=== PATIENT | male | born 1990 | race Caucasian/White ===

== ENCOUNTER 2019-01-02 18:48 | Emergency (ER) | payer OTHER, SELFPAY ==
[2019-01-02 18:50] VITALS: BP 146/71; PULSE 93; RESP 16; TEMP 36.9; O2SAT 99
--- NOTE | 2019-01-02 19:10 | ED.GENADUL_ITS ---
Discharge Plan Disposition Patient Disposition: HOME Condition: Good Discharge Details Chief Complaint: GenMedical Clinical Impression: Colitis, Hepatic cyst Primary Care Provider: None,None ED Provider: Justus Morin Home Meds and New Rx's Prescriptions: New ciprofloxacin HCl [Cipro] 500 mg tablet 500 mg PO BID Qty: 20 RF: 0 metronidazole [Flagyl] 500 mg tablet 500 mg PO TID 10 Days Qty: 30 RF: 0 No Action No Known Home Meds RF: 0 Discharge Instructions Instructions: Colitis (ED) Additional Instructions: Please take the antibiotics as directed. Do not take any alcohol with the Flagyl as this can cause a severe reaction. Please take 1000 mg of Tylenol every 6 hours and 800 mg of ibuprofen every 6 hours as needed for pain. If you notice any worsening of your symptoms, or any new symptoms such as vomiting, diarrhea, fever, chills, shortness of breath, chest pain, numbness, weakness, or fainting , please return immediately to the emergency department for reevaluation. Please follow up with your primary care provider as soon as possible for reassessment and reevaluation. As always, it was a pleasure participating in your medical care today. Please follow-up with your family doctor for reassessment of the hepatic cyst. Medical Decision Making This is a pleasant 28-year-old male who presents today for evaluation of abdominal pain for the last 2 days, it occurred while he was jumping while rollerskating. He denies any vomiting or diarrhea, he denies red flags of fever chills hematochezia melena or acholic stool. Exam demonstrates no testicular pain, pain appears to be localized to the left lower abdomen. We will get a CT scan to rule out acute diverticulitis versus abscess. We will get a UA to rule out UTI, we will rehydrate, and treat the patient's pain. Differential is high as for diverticulitis versus so has muscle sprain. 8:[address] scan results are positive for evidence of colitis, no evidence of abscess, obstruction or other mass. There are 2 small subcentimeter hypodensities noted in the liver, most likely hepatic cyst. No other significant abnormalities. Patient's white count is normal, the remainder of his labs are benign. Patient states that he will stop drinking alcohol for the medications. He will be given his first dose of Cipro here, and a prescription for Cipro and Flagyl for home use. We discussed red flags which to return the patient understands. Will also set up PCP for outpatient follow-up for the patient. I have extensively reviewed the treatment plan and discharge instructions with the patient. I have addressed all patient concerns at this time. The patient was made aware of what symptoms to monitor for that would warrant a return to the emergency department. Discussed the plan with the patient, they demonstrate verbal understanding and agreement with our assessment and plan at this time. COMPARISON: No relevant prior studies available. FINDINGS: Heart: Heart size normal. ABDOMEN: Liver: 7 mm hypodense irregular lesion in the anterior liver on series 4 image 15. 5 mm low-density lesion in the posterior liver dome on series 4 image 12. These does not meet criteria for further assessment. Gallbladder and bile ducts: Normal. No calcified stones. No ductal dilation. Pancreas: Normal. No inflammatory changes or ductal dilation. Spleen: Normal. No splenomegaly. Adrenals: Normal. No adrenal mass. Kidneys and ureters: Normal. No hydronephrosis or hydroureter. No urinary tract stones are identified. Stomach and bowel: The visualized distal esophagus and stomach are normal. The small bowel is normal with no evidence of obstruction. The colon is largely contracted, however it appears slightly thickwalled with some minimal adjacent stranding, suspicious for colitis. No evidence of bowel obstruction, perforation, or abscess. Appendix: Normal. No evidence of appendicitis. PELVIS: Bladder: Unremarkable as visualized. Reproductive: Unremarkable as visualized. ABDOMEN and PELVIS: Intraperitoneal space: No free fluid or air. Bones/joints: No acute osseous abnormalities. Soft tissues: Unremarkable. Vasculature: Normal. No abdominal aortic aneurysm. Lymph nodes: No adenopathy. Other findings: Visualized lug bases are clear. IMPRESSION: 1. Mild diffuse colonic wall thickening with faint adjacent stranding, consistent with colitis. No evidence of bowel obstruction, perforation, or abscess. 2. There are 2 small subcentimeter hypodensities in the liver which are statistically most likely small hepatic cysts. These do not reach criteria for further assessment. Dictated and Authenticated by: Charles Boyd MD. Ordering:JONE Jerome MD HPI General Date/Time Provider Initiated Documentation: 01/02/19 18:51 . HPI Narrative: This is a 28-year-old male with no significant past medical history except for history of a left-sided hernia repair when he was a child, he presents today for evaluation of left lower quadrant pain for the last 2 days. The patient states that he was rollerblading when he tried to jump, as he was pushing off he noticed significant pain in his left lower quadrant. This is continued since then. Pain is made worse with movement and palpation. Improved by nothing. He denies any testicular pain, dysuria, vomiting or diarrhea. He denies any hematochezia melena or acholic stool. He denies any fever, chills, chest pain shortness of breath numbness or tingling. He has no other complaints at this time. He denies any other modifying factors. Patient does drink regularly, last drink was at 4 PM. He denies any IV or illicit drug use. Related Data Home Medications Medication Instructions Recorded Confirmed Unknown [No Known Home Meds] 09/13/16 01/02/19 ciprofloxacin HCl [Cipro] 500 mg PO BID #20 tab 01/02/19 metronidazole [Flagyl] 500 mg PO TID 10 Days #30 tab 01/02/19 Previous Rx's Medication Instructions Recorded ciprofloxacin HCl [Cipro] 500 mg PO BID #20 tab 01/02/19 metronidazole [Flagyl] 500 mg PO TID 10 Days #30 tab 01/02/19 Allergies Allergy/AdvReac Type Severity Reaction Status Date / Time amoxicillin AdvReac Intermediate Skin Rash Unverified 10/31/16 23:43 General Stated Complaint: GenMedical YAN: 4 Review of Systems Review of Systems All systems reviewed & are unremarkable except as noted in HPI and below PFSH Surgical History Status post repair of hydrocele (Acute) History of hernia repair (Chronic) Social History Smoking/Tobacco Use Status: Current every day Tobacco Type: e-cigarettes Alcohol Intake: current Alcohol Intake frequency: 0-2 drinks per day Alcohol type: beer Substance use type: marijuana Do you feel safe at home: Yes Do you feel safe in your relationship?: Yes Exam Narrative Exam Narrative: 1.Const: Well-nourished, Well-developed, appearing stated age 2.Eyes: PERRL, no conjunctival injection, and symmetrical lids. 3.ENT: Atraumatic external nose and ears. Moist MM. Neck: Symmetric, trachea midline, No thyromegaly. 4.CVS: +S1/S2, No murmurs or gallops. Peripheral pulses 2+ and equal in all extremities. Brisk capillary refill in all extremities. 5.RESP: Unlabored respiratory effort. Clear to auscultation bilaterally. No wheezes rales or rhonchi 6.GI: Soft, Nondistended, No hepatosplenomegaly. No guarding or rebound. Notable reproducible left lower quadrant pain on exam. No pain at McBurney's point, negative Buchanan sign. Left-sided obturator and psoas sign is present. No testicular tenderness, normal male genitalia, normal cremasteric reflex bilaterally. 7.MSK: Normocephalic/Atraumatic, Extremities w/o deformity or ttp No cyanosis or clubbing, Normal movement of all extremities 8.Skin: Warm, Dry. No rashes or lesions. 9.Neuro: regulatory affairs coordinator II-XII grossly intact. Sensation grossly intact, no focal neurolo gic deficits. 10.Psych: (AAO) x3. Appropriate mood and affect Course Vital Signs Temperature 36.9 C 01/02/19 18:50 Pulse 93 H 01/02/19 18:50 Respiratory Rate 16 01/02/19 18:50 Blood Pressure 146/71 H 01/02/19 18:50 Pulse Oximetry 99 01/02/19 18:50 Temperature 36.9 C 01/02/19 18:50 Temperature Source Temporal Artery Scan 01/02/19 18:50 Pulse 93 H 01/02/19 18:50 Respiratory Rate 16 01/02/19 18:50 Respiratory Effort 01/02/19 18:50 Blood Pressure 146/71 H 01/02/19 18:50 Pulse Oximetry 99 01/02/19 18:50 Oxygen Delivery Method Room Air 01/02/19 18:50 Oxygen Flow Rate 0 01/02/19 18:50
[2019-01-02] MEDS: Acetaminophen 500 MG TAB 1000 MG PO (19:17)
[2019-01-02] MEDS: Normal Saline 1,000 ML 1000 ML IV (19:19)
[2019-01-02] MEDS: Omnipaque 350 MG/ML 100 ML BTL IJ (19:31)
[2019-01-02 19:39] LABS: ALT 25 U/L (12-78); AST 20 U/L (15-37); Albumin 4.6 g/dL (3.4-5.0); Alkaline Phosphatase 55 U/L (46-116); Anion Gap 8.4 mmol/L (3-11); BUN 11 mg/dL (7-18); Bilirubin, Total 0.3 mg/dL (0.2-1.0); CO2 28.6 mmol/L (21.0-32.0); CREATININE 1.11 mg/dL (0.70-1.30); Chloride 102 mmol/L (98-107); Glucose 80 mg/dL (70-100); Lipase 92 U/L (73-393); Potassium 3.7 mmol/L (3.5-5.1); Sodium 139 mmol/L (136-145)
--- NOTE | 2019-01-02 19:40 | DI.CT_ITS ---
SYMPTOM/DIAGNOSIS: LLQ PAIN ABDOMEN AND PELVIC CT: CT scan of the abdomen and pelvis was performed following the uneventful administration of intravenous contrast material. The visualized lung bases are clear. The liver is normal in size. There are several tiny hypodense lesions within the liver. They are too small for further characterization but likely reflect small cysts. There is a 1.7 by 1 cm. hypodense lesion in the subcapsular region at the posterior lateral aspect of the right lobe of the liver. The gallbladder is negative. There is no biliary ductal dilatation. The pancreas, spleen, adrenal glands, kidneys, ureters and bladder are unremarkable as are the reproductive organs. The abdominal aorta is of normal caliber. No significant abdominal or pelvic adenopathy, ascites or pneumoperitoneum is seen. The colon is largely collapsed limiting evaluation with bowel wall thickening. No significant pericolonic inflammatory change is seen. No findings to suggest acute appendicitis are present. The bones are intact. IMPRESSION: 1. No definite evidence of an acute abdomen. 2. Non distended colon making evaluation of bowel wall thickening limited. If there is concern for bowel inflammatory process, a follow up examination with oral contrast may be obtained. 3. 1.7 cm. hypodense lesion in the posterior subcapsular region of the right lobe of the liver. The finding is nonspecific. This may represent a benign lesion such as a hemangioma. Abdominal ultrasound may be considered for further evaluation on a non emergent basis.
[2019-01-02 19:51] LABS: Bilirubin Negative (Negative); Blood Negative (Negative); Clarity Clear; Glucose Negative (Negative); Ketones Negative (Negative); Leukocyte Esterase Negative (Negative); Nitrite Negative (Negative); Urobilinogen 0.2 EU/dL (Up TO 0.2)
[2019-01-02] MEDS: Ketorolac 30 MG/ML VIAL IVP (19:58)
--- NOTE | 2019-01-02 20:03 | DI.VRAD_ITS ---
EXAM: CT Abdomen and Pelvis With Contrast EXAM DATE/TIME: 01/02/2019 7:05 PM CLINICAL HISTORY: 28 years old, male; Abdominal pain; Localized; Left lower quadrant (llq); Prior surgery; Surgery date: 6+ months; Surgery type: Hydrocele, hernia repair TECHNIQUE: Imaging protocol: Axial computed tomography images of the abdomen and pelvis with intravenous contrast. Coronal and sagittal reformatted images were created and reviewed. Radiation optimization: All CT scans at this facility use at least one of these dose optimization techniques: automated exposure control; mA and/or kV adjustment per patient size (includes targeted exams where dose is matched to clinical indication); or iterative reconstruction. Contrast material: [id number]; Contrast volume: 94 ml; Contrast route: IV; COMPARISON: No relevant prior studies available. FINDINGS: Heart: Heart size normal. ABDOMEN: Liver: 7 mm hypodense irregular lesion in the anterior liver on series 4 image 15. 5 mm low-density lesion in the posterior liver dome on series 4 image 12. These does not meet criteria for further assessment. Gallbladder and bile ducts: Normal. No calcified stones. No ductal dilation. Pancreas: Normal. No inflammatory changes or ductal dilation. Spleen: Normal. No splenomegaly. Adrenals: Normal. No adrenal mass. Kidneys and ureters: Normal. No hydronephrosis or hydroureter. No urinary tract stones are identified. Stomach and bowel: The visualized distal esophagus and stomach are normal. The small bowel is normal with no evidence of obstruction. The colon is largely contracted, however it appears slightly thickwalled with some minimal adjacent stranding, suspicious for colitis. No evidence of bowel obstruction, perforation, or abscess. Appendix: Normal. No evidence of appendicitis. PELVIS: Bladder: Unremarkable as visualized. Reproductive: Unremarkable as visualized. ABDOMEN and PELVIS: Intraperitoneal space: No free fluid or air. Bones/joints: No acute osseous abnormalities. Soft tissues: Unremarkable. Vasculature: Normal. No abdominal aortic aneurysm. Lymph nodes: No adenopathy. Other findings: Visualized lug bases are clear. IMPRESSION: 1. Mild diffuse colonic wall thickening with faint adjacent stranding, consistent with colitis. No evidence of bowel obstruction, perforation, or abscess. 2. There are 2 small subcentimeter hypodensities in the liver which are statistically most likely small hepatic cysts. These do not reach criteria for further assessment. Dictated and Authenticated by: Charles Boyd MD. Ordering:JONE Jerome MD
[2019-01-02 20:16] LABS: Abs Immature Grans 0.01 k/cumm (0.0-0.09); Absolute Basophil Count 0.02 k/cumm (0.0-0.2); Absolute Eosinophil Count 0.09 k/cumm (0.0-0.7); Absolute Lymphocyte Count 1.44 k/cumm (1.2-3.4); Absolute Monocyte Count 0.35 k/cumm (0.11-0.7); Basophils % 0.4; Eosinophils % 1.6; HCT 44.3 % (40.0-50.0); Immature Grans % 0.2; Lymphocytes % 25.2; Mean Corp. HGB Concentration 33.9 g/dL (32.0-36.0); Mean Corpuscular Hemoglobin 29.4 pg (27.0-33.0); Mean Corpuscular Volume 86.7 fL (80-95); Mean Platelet Volume 10.6 fL (8.0-11.0); Monocytes % 6.1; Neutrophils % 66.5; Platelet Count 268 x1000/uL (130-400); RBC 5.11 m/cumm (4.50-6.00); RBC Distribution Width 12.1 % (11.8-14.1); White Blood Cell Count 5.71 k/cumm (4.4-10.8)
[2019-01-02] MEDS: Ciprofloxacin 500 MG TAB PO ×2 (20:26)
[2019-01-02 20:31] VITALS: BP 132/79; PULSE 87; RESP 18; TEMP 37.1; O2SAT 98
--- NOTE | 2019-01-03 08:56 | PDOC.ERCMPRO ---
Care Management Progress Note 01/03-Dr. Morin requested assistance with establishing a PCP. Adjfilemonu from [facility] working second hand. Referral faxed to [facility] this am.
--- NOTE | 2019-01-03 08:58 | CMPROGNOTE_ITS ---
Care Management Progress Note 01/03-Dr. Morin requested assistance with establishing a PCP. Adjfilemonu from [facility] color control operator. Referral faxed to [facility] this am.
== END 2019-01-02 20:30 | disposition home or self-care (01) ==
PROVIDERS: Emergency Provider Student in an Organized Health Care Education/Training Program; PCP Physician Assistant Medical
DX: K52.9 Noninfective gastroenteritis and colitis, unspecified (principal); K76.89 Other specified diseases of liver
CPT/HCPCS: 36415; 80053; 83690; 96361; 96374; 96375; 99285; 74177; 81003; 85025; 99284; J1885; J2270; J3490

== ENCOUNTER 2019-09-03 13:01 | Emergency (ER) | payer OTHER, SELFPAY ==
[2019-09-03] VITALS (31 sets, daily range): BP systolic 116–138; BP diastolic 61–76; PULSE 53–70; RESP 7–24; TEMP 36.8; O2SAT 81–100
--- NOTE | 2019-09-03 13:38 | DI.RAD_ITS ---
EXAM: XR CHEST 2V PA LATERAL INDICATION: chest pain, r/o acute disease. COMPARISON: LEFT RIBS TO INCLUDE CXR from 03/11/2012 TECHNIQUE: 2D digital imaging was performed. FINDINGS: Heart size is normal. The lungs are well inflated and clear. No infiltrate, effusion or pneumothor ax is seen. No rib or spine fractures identified. IMPRESSION: Negative chest x-ray.
--- NOTE | 2019-09-03 13:54 | ED.GENADUL_ITS ---
Discharge Plan Disposition Patient Disposition: HOME Condition: Improving Discharge Details Chief Complaint: Chest Pain Clinical Impression: Acute chest wall pain Primary Care Provider: Daniel Thomas ED Provider: Trisha Ramos Home Meds and New Rx's Prescriptions: No Action No Known Home Meds RF: 0 Discharge Instructions Instructions: Chest Wall Pain (ED) Additional Instructions: Alternate tylenol and motrin as needed and directed for pain. You can purchase [id number] lidocaine patches to take as directed for pain. Alternate ice and heat to the affected area several times daily for 20 minutes at a time. Follow-up with your primary care doctor in 1 week. Return to the emergency department with any worsening or new concerning symptoms. Discharge Data Discharge Date/Time-TO BE ENTERED AT DEPARTURE: 09/03/19 16:55 Discharge Physician: Trisha Ramos Medical Decision Making 29-year-old male with no significant past medical history who is a smoker and daily drinker presents for left sided chest pain since yesterday. Patient sent from urgent care for further evaluation of his chest pain as there was no injury. States he has 2 little children at home but denies any known injury. He states the pain is worse with movement of his arms, deep breath and palpation. EKG on arrival unremarkable. Patient has a localized area of significant tenderness palpation to his left anterior medial chest. There is no evidence of rash, trauma or infection. Lungs clear. Abdomen soft and nontender. Appears most likely consistent with chest wall strain, costochondritis or musculoskeletal chest pain. Denies tearing or ripping sensation and not consistent with dissection. History presentation not consistent with ACS or PE. PERC negative. Labs and imaging done and unremarkable. Troponin negative. D-dimer negative. Patient was given Lidoderm patch, and Toradol and had complete relief of pain and was requesting to go home. Patient was advised to alternate ice and heat, ibuprofen, Tylenol and to purchase [id number] lidocaine patches. Advised to follow up with the primary care doctor for re-evaluation. Usual and customary return precautions given prior to discharge. Medical Records Medical records reviewed: Yes I reviewed the patient's medical records. Imaging Data Radiologic Study: Radiologist's impression: XR Chest, 2 Views Exam date and time: 09/03/2019 1:40 PM Age: 29 years old Clinical indication: Cough TECHNIQUE: Imaging protocol: XR of the chest Views: 2 views. COMPARISON: No relevant prior studies available. FINDINGS: Lungs: Unremarkable. No consolidation. Pleural space: Unremarkable. No pleural effusion. No pneumothorax. Heart/Mediastinum: Unremarkable. No cardiomegaly. Bones/joints: Unremarkable. IMPRESSION: No acute findings. Lab Data Lab results reviewed: Yes I reviewed the patient's lab results. Labs: Laboratory Tests Range/Units 09/03/19 09/03/19 09/03/19 13:25 13:25 13:25 WBC (4.4-10.8) k/cumm 5.00 RBC (4.50-6.00) m/cumm 5.05 Hgb (13.5-17.5) g/dL 15.3 Hct (40.0-50.0) % 44.5 MCV (80-95) fL 88.1 MCH (27.0-33.0) pg 30.3 MCHC (32.0-36.0) g/dL 34.4 RDW (11.8-14.1) % 12.3 Plt Count (130-400) x1000/uL 257 MPV (8.0-11.0) fL 10.7 Immature Gran % % 0.4 Neutrophils % 55.0 Lymphocytes % 30.2 Monocytes % 8.2 Eosinophils % 5.6 Basophils % 0.6 Absolute Neutrophils (1.2-6.7) k/cumm 2.75 Absolute Lymphocytes (1.2-3.4) k/cumm 1.51 Absolute Monocytes (0.11-0.7) k/cumm 0.41 Absolute Eosinophils (0.0-0.7) k/cumm 0.28 Absolute Basophils (0.0-0.2) k/cumm 0.03 D-Dimer (<500) ng/mlFEU 240 Sodium (136-145) mmol/L 145 Potassium (3.5-5.1) mmol/L 3.7 Chloride (98-107) mmol/L 104 Carbon Dioxide (21.0-32.0) mmol/L 29.8 Anion Gap (3-11) mmol/L 11.2 H BUN (7-18) mg/dL 9 Creatinine (0.70-1.30) mg/dL 0.99 Estimated GFR/1.73 m2 (mL/min/1.73m2) >= 60.00 Glucose (74-106) mg/dL 88 Calcium (8.5-10.1) mg/dL 9.0 Magnesium (1.8-2.4) mg/dL 2.0 Total Bilirubin (0.2-1.0) mg/dL 0.2 AST (15-37) U/L 14 L ALT (16-63) U/L 22 Alkaline Phosphatase (46-116) U/L 55 Troponin I (<0.06) ng/Ml < 0.05 Total Protein (6.4-8.2) g/dL 7.5 Albumin (3.4-5.0) g/dL 4.3 ECG Data Attestation: I personally reviewed and interpreted this ECG (s) as follows: Interpretation: Rate of 60, sinus, no acute ST elevation or depression. DC 180. QTc 410. QRS 104. HPI General Date/Time Provider Initiated Documentation: 09/03/19 13:05 . History of Present Illness 29 year old M presents to the emergency department with the chief complaint of Left-sided chest pain, Patient started experiencing this day(s) (2) and it has been intermittent. No relieving factors improve symptom(s), Movement worsens symptoms and Other factors that worsen symptoms (Palpation, deep breath) . Patient notes denies cough, diaphoresis, fever/chills, headaches, loss of appetite, malaise, nausea/vomiting, rash, shortness of br eath, syncope and weakness. Patient did receive the following treatments prior to arrival, none Related Data Home Medications Medication Instructions Recorded Confirmed Unknown [No Known Home Meds] 09/13/16 09/03/19 Allergies Allergy/AdvReac Type Severity Reaction Status Date / Time amoxicillin AdvReac Intermediate Skin Rash Unverified 09/03/19 13:14 General Stated Complaint: Chest Pain YAN: 3 Review of Systems All systems reviewed & are unremarkable except as noted in HPI and below Constitutional Constitutional: Reports as per HPI, Denies chills and Denies fever(s) Eyes Eyes: Denies blurry vision ENT Ears, Nose, Mouth, and Throat: Denies dizziness, Denies sore throat and Denies throat swelling Cardiovascular Cardiovascular: Reports chest pain and Denies dyspnea Respiratory Respiratory: Denies cough and Denies dyspnea Gastrointestinal Gastrointestinal: Denies abdominal pain, Denies diarrhea and Denies vomiting Genitourinary Genitourinary: Denies hematuria and Denies dysuria Musculoskeletal Musculoskeletal: Denies back pain and Denies numbness Integumentary/Breasts Skin/Breast: Denies lesions and Denies rash Neurologic Neurologic: Denies dizziness, Denies focal weakness and Denies numbness Allergic/Immunologic Allergic/Immunologic: Denies throat swelling [facility] Medical History No significant past medical history (Acute) Surgical History History of hernia repair (Chronic) Status post repair of hydrocele (Acute) Social History Smoking/Tobacco Use Status: Current every day Tobacco Type: e-cigarettes Alcohol Intake: current Alcohol Intake frequency: 0-2 drinks per day Alcohol type: beer Drug use: Daily Substance use type: marijuana Do you feel safe at home: Yes Do you feel safe in your relationship?: Yes Exam Const General: cooperative, healthy appearing and no acute distress HENMT Head: normal to inspection Face and sinus: normal facial exam Eyes General: appearance normal, both eyes and all related structures EOM: EOM intact bilaterally Neck Neck: normal visual inspection and No submandibular swelling Lymphatic: no lymphadenopathy noted Chest Chest: normal inspection of the chest and no tenderness Chest/axillae images: 1. Localized area of tenderness to palpation left anterior medial chest. There is no rash, ecchymosis, erythema, step-off or crepitus. Resp Effort & Inspection: normal respiratory effort and able to speak in complete sentences Auscultation: clear to auscultation bilaterally Cardio Rate: regular rate Rhythm: regular rhythm GI Inspection: normal to inspection Palpation: soft, not firm, not rigid and nontender Auscultation: normal bowel sounds Back/Spine/Pelvis Pelvis: no pain with anterior-posterior compression Skin General skin exam: no rashes or lesions noted Neuro General: alert, awake and oriented x3 Cognition: normal cognition Speech: speech normal Motor: muscle tone normal throughout Sensory Exam: no sensory deficits noted Extrem General: normal to inspection, full ROM, normal capillary refill, no calf tenderness bilaterally and no edema Psych Appearance: grossly normal Mental Status: mental status grossly normal Speech and Movement: speech and movement normal Affect: normal affect Course Vital Signs Vital signs: Vital Signs Temperature 98.2 F 09/03/19 13:07 Pulse 59 L 09/03/19 13:07 Respiratory Rate 18 09/03/19 13:07 Blood Pressure 136/71 09/03/19 13:07 Pulse Oximetry 100 09/03/19 13:07 Temperature 98.2 F 09/03/19 13:07 Temperature Source Skin 09/03/19 13:07 Pulse 65 09/03/19 13:33 Pulse 67 09/03/19 13:33 Respiratory Rate 18 09/03/19 13:33 Respiratory Effort Non-Labored 09/03/19 13:12 Respiratory Depth Normal 09/03/19 13:12 Respiratory Pattern Normal 09/03/19 13:12 Blood Pressure 125/76 09/03/19 13:33 Blood Pressure Mean 86 09/03/19 13:33 Blood Pressure Position Supine 09/03/19 13:07 Pulse Oximetry 100 09/03/19 13:33
--- NOTE | 2019-09-03 14:28 | DI.VRAD_ITS ---
PROCEDURE INFORMATION: Exam: XR Chest, 2 Views Exam date and time: 09/03/2019 1:40 PM Age: 29 years old Clinical indication: Cough TECHNIQUE: Imaging protocol: XR of the chest Views: 2 views. COMPARISON: No relevant prior studies available. FINDINGS: Lungs: Unremarkable. No consolidation. Pleural space: Unremarkable. No pleural effusion. No pneumothorax. Heart/Mediastinum: Unremarkable. No cardiomegaly. Bones/joints: Unremarkable. IMPRESSION: No acute findings. Dictated and Authenticated by: Rebecca Kenney MD. Ordering:ELVIE Rico MD
[2019-09-03 14:33] LABS: Abs Immature Grans 0.02 k/cumm (0.0-0.09); Absolute Basophil Count 0.03 k/cumm (0.0-0.2); Absolute Eosinophil Count 0.28 k/cumm (0.0-0.7); Absolute Lymphocyte Count 1.51 k/cumm (1.2-3.4); Absolute Monocyte Count 0.41 k/cumm (0.11-0.7); Absolute Neutrophil Count 2.75 k/cumm (1.2-6.7); Basophils % 0.6; Eosinophils % 5.6; HCT 44.5 % (40.0-50.0); HGB 15.3 g/dL (13.5-17.5); Immature Grans % 0.4 %; Lymphocytes % 30.2; Mean Corp. HGB Concentration 34.4 g/dL (32.0-36.0); Mean Corpuscular Hemoglobin 30.3 pg (27.0-33.0); Mean Corpuscular Volume 88.1 fL (80-95); Mean Platelet Volume 10.7 fL (8.0-11.0); Monocytes % 8.2; Platelet Count 257 x1000/uL (130-400); RBC 5.05 m/cumm (4.50-6.00); RBC Distribution Width 12.3 % (11.8-14.1)
[2019-09-03 14:45] LABS: ALT 22 U/L (16-63); AST 14 U/L (15-37); Albumin 4.3 g/dL (3.4-5.0); Alkaline Phosphatase 55 U/L (46-116); Anion Gap 11.2 mmol/L (3-11); BUN 9 mg/dL (7-18); Bilirubin, Total 0.2 mg/dL (0.2-1.0); CO2 29.8 mmol/L (21.0-32.0); CREATININE 0.99 mg/dL (0.70-1.30); Chloride 104 mmol/L (98-107); Glucose 88 mg/dL (74-106); Potassium 3.7 mmol/L (3.5-5.1); Sodium 145 mmol/L (136-145); Total Protein 7.5 g/dL (6.4-8.2)
[2019-09-03 14:48] LABS: Troponin I < 0.05 ng/Ml (<0.06)
[2019-09-03] MEDS: Ketorolac 30 MG/ML VIAL IVP (15:59)
[2019-09-03] MEDS: Lidocaine 5% Patch 1 PATCH TP (15:59)
[2019-09-03 16:40] LABS: D-Dimer 240 ng/mlFEU (<500)
== END 2019-09-03 16:55 | disposition home or self-care (01) ==
PROVIDERS: Emergency Provider Physician Assistant; PCP Physician Assistant Medical
DX: R07.81 Pleurodynia (principal)
CPT/HCPCS: 36415; 80053; 93005; 96374; 99285; 71046; 83735; 84484; 85025; 85379; 93010; J1885

== ENCOUNTER 2023-07-27 17:00 | Emergency (ER) | payer OTHER, SELFPAY ==
[2023-07-27 17:16] VITALS: BP 159/108; PULSE 75; RESP 16; TEMP 36.6; O2SAT 98
--- NOTE | 2023-07-27 18:15 | DI.CT_ITS ---
Exam(s) CT ABDOMEN PELVIS WO EXAM: CT ABDOMEN PELVIS WO CLINICAL HISTORY: epigastric pain, coffee ground emesis. TECHNIQUE: Imaging Protocol: Axial computed tomography images with coronal and sagittal reformatted images were created and reviewed. COMPARISON: No exams were available for comparison FINDINGS: ABDOMEN: Lung Bases: Normal where visualized. Liver: Normal density. There is a stable tiny cyst in the right lobe of the liver. Gallbladder and biliary tract: No radiodense calculus or biliary ductal dilation. Pancreas: Normal density, no abnormal calcifications or inflammatory process. Spleen: Normal. Kidneys: Normal size, contour and axis.No radiodense stones or obstructive uropathy. No masses seen. Adrenal glands: No mass is seen. Lymph nodes: Within normal limits. Abdominal Aorta: Abdominal portion non-dilated. PELVIS: Bladder:Symmetric distention, no gross wall thickening. Bowel: No obstruction or bowel wall thickening. Appendix is unremarkable. Peritoneal cavity: No ascites, collection or mesenteric inflammatory response. No free air. Reproductive organs: Unremarkable as visualized. Bones: Within normal limits. Soft Tissues: Within normal limits. IMPRESSION: No acute abdominal or pelvic process. RADIATION DOSE DELIVERED: Total DLP DATA REPOSITORY: All CT scans at this facility are submitted to the National Radiology Data Registry (NRDR) Dose Index Registry (DIR) with the [employer] (ACR). RADIATION OPTIMIZATION: All CT scans at this facility use at least one of these dose optimization te chniques: automated exposure control; mA and/or kV adjustment per patient size (includes targeted exa ms where dose is matched to clinical indication); or iterative reconstruction.
--- NOTE | 2023-07-27 18:35 | ED.GENADUL_ITS ---
Discharge Plan Disposition Patient Disposition: Home Discharge Details Clinical Impression: Nausea & vomiting Primary Care Provider: Daniel Thomas ED Provider: Zainab Martinez Home Meds and New Rx's Prescriptions: New famotidine [Pepcid] 20 mg tablet 20 mg PO DAILY Qty: 30 0RF omeprazole 20 mg capsule,delayed release(DR/EC) 20 mg PO DAILY 42 Days Qty: 42 0RF ondansetron 4 mg tablet,disintegrating 4 mg PO Q8H PRNQty: 14 0RF Discharge Instructions Instructions: Acute Nausea and Vomiting (ED) Additional Instructions: Take the Pepcid, Prilosec daily to treat you for possible gastritis which may be causing some of your symptoms Try to cut down on the twisted tea consumption as this also could be causing gastritis Please reestablish with your primary care physician and I recommend outpatient endoscopy with persistent symptoms Please return earlier should he have new or worsening complaints Referrals: Daniel Thomas PA [Primary Care Provider] - 2 days Medical Decision Making This 33-year-old male presenting with nausea, vomiting, CT was ordered for further evaluation which did not show evidence of acute abnormality per radiology interpretation my review Diagnostic blood work is reassuring, suspect gastritis, will place patient on Zofran, Pepcid, Prilosec No jaundice or icterus, no rebound or guarding on abdominal exam, mild epigastric tenderness appreciated on exam He is encouraged to reestablish with his primary care physician for possible outpatient endoscopy with persistent symptoms Hemodynamically stable, feeling symptomatically improved after Zofran and fluids Given the threshold to return should he have new or worsening complaints HPI General Date/Time Provider Initiated Documentation: 07/27/23 17:03 . HPI Narrative: 33-year-old male with history of daily alcohol consumption, 4-5 beers presents with report of headache, followed by nausea and 1 episode of vomiting, they were concerned as it appeared black in color. Patient denies any bloody stools. He denies any ibuprofen consumption. He does report some epigastric pain. He does not go to the doctor. He denies any current headache. He does feel nauseous. He denies any chest pain. History of inguinal surgery repair when he was a child, no additional surgeries per patient. Denies any additional illicit drug use. Describes the pain in his abdomen as cramping and sharp intermittently. Related Data Home Medications Medication Instructions Recorded Confirmed famotidine 20 mg tablet (Pepcid) 20 mg PO DAILY #30 tabs 07/27/23 omeprazole 20 mg capsule,delayed 20 mg PO DAILY 6 weeks #42 caps 07/27/23 release ondansetron 4 mg disintegrating 4 mg PO Q8H PRN #14 tabs 07/27/23 tablet Previous Rx's Medication Instructions Recorded famotidine 20 mg tablet (Pepcid) 20 mg PO DAILY #30 tabs 07/27/23 omeprazole 20 mg capsule,delayed 20 mg PO DAILY 6 weeks #42 caps 07/27/23 release ondansetron 4 mg disintegrating 4 mg PO Q8H PRN #14 tabs 07/27/23 tablet Allergies Allergy/AdvReac Type Severity Reaction Status Date / Time amoxicillin AdvReac Intermediate Skin Rash Unverified 07/27/23 17:18 General Stated Complaint: Nausea/Vomit/Diar YAN: 3 PFSH All Active Problems (Updated 07/27/23 @ 19:59 by ERINN Munoz) Nausea & vomiting (Acute) Medical History (Updated 07/27/23 @ 19:59 by ERINN Munoz) No significant past medical history Surgical History Status post repair of hydrocele History of hernia repair Social History Smoking/Tobacco Use Status: Current every day Tobacco Type: cigarettes Smoking risk assessment performed?: Yes Alcohol Intake: current Alcohol Intake frequency: 3 or more drinks per day Alcohol type: beer Drug use: Daily Substance use type: marijuana Do you feel safe at home: Yes Do you feel safe in your relationship?: Yes Course Vital Signs Vital signs: Vital Signs Temperature 36.6 C 07/27/23 17:16 Pulse 75 07/27/23 17:16 Respiratory Rate 16 07/27/23 17:16 Blood Pressure 159/108 H 07/27/23 17:16 Pulse Oximetry 98 07/27/23 17:16 Temperature 36.6 C 07/27/23 17:16 Temperature Source Skin 07/27/23 17:16 Pulse 75 07/27/23 17:16 Respiratory Rate 16 07/27/23 17:16 Respiratory Effort Normal, Non-Labored 07/27/23 17:19 Blood Pressure 159/108 H 07/27/23 17:16 Blood Pressure Position Sitting 07/27/23 17:16 Pulse Oximetry 98 07/27/23 17:16 Oxygen Delivery Method Room Air 07/27/23 17:16 Oxygen Flow Rate 0 07/27/23 17:16 Pain Level 4 07/27/23 17:16 Comment headache- did not take anything for pain 07/27/23 17:16 PAWSS Have you Been Recently Intoxicated or Drunk Within the Last 30 days?: Yes Have you Ever Experienced Previous Episodes of Alcohol Withdrawal?: No Have you ever Experienced Withdrawal Seizures?: No Have you ever Experienced Delirium Tremens(DT)s?: No Have you ever undergone Alcohol Rehabilitation Treatment (i.e, inpt ot outpatient treatment programs)?: No Have you ever Experienced Blackouts?: No Have you ever Combined Alcohol with other Downers within the last 90 days?: No Have you ever Combined Alcohol with any other Substance of Abuse during the last 90 days?: No Positive Blood Alcohol level on Presentation? [PCS.BAL]: No Evidence of Increased Autonomic Activity (i.e. HR>120, tremor, sweating, agitation, nausea)?: No Result: 1
[2023-07-27] MEDS: Pantoprazole 40 MG VIAL IVP (18:47)
[2023-07-27] MEDS: Ondansetron 4 MG/2 ML VIAL IVP (18:47)
[2023-07-27] MEDS: Lactated Ringers 1,000 ML 1000 ML IV (18:47)
[2023-07-27 19:02] LABS: Abs Immature Grans 0.03 10^3/uL (0.0-0.06); Absolute Basophil Count 0.04 10^3/uL (0.0-0.2); Absolute Eosinophil Count 0.19 10^3/uL (0.0-0.7); Absolute Lymphocyte Count 1.62 10^3/uL (1.2-3.4); Absolute Monocyte Count 0.47 10^3/uL (0.1-0.8); Absolute Neutrophil Count 4.15 10^3/uL (1.2-6.7); Basophils % 0.6; Eosinophils % 2.9; HGB 15.6 g/dL (13.5-17.5); Immature Grans % 0.5; Lymphocytes % 24.9; MCH 29.2 pg (27.0-33.0); MCHC 33.9 % (32.0-36.0); MCV 86 fL (80-95); MPV 9.9 fL (8.0-11.0); Monocytes % 7.2; Neutrophils % 63.9; Platelet Count 313 10^3/uL (130-400); RBC 5.35 10^6/uL (4.36-5.78); RDW 11.9 % (11.8-14.1); RDW-SD 37.4 fL
[2023-07-27 19:08] LABS: ALT 37 U/L (16-63); AST 17 U/L (15-37); Albumin 4.6 g/dL (3.4-5.0); Alkaline Phosphatase 69 U/L (46-116); BUN 13 mg/dL (7-18); Bilirubin, Total 0.5 mg/dL (0.2-1.0); CREATININE 1.1 mg/dL (0.70-1.30); Calcium 9.7 mg/dL (8.5-10.1); Chloride 102 mmol/L (98-107); Estimated GFR 92.04 (mL/min/1.73m2); Glucose 78 mg/dL (74-106); Lipase 24 U/L (16-77); Potassium 3.9 mmol/L (3.5-5.1); Sodium 141 mmol/L (136-145); Total Protein 8.3 g/dL (6.4-8.2)
--- NOTE | 2023-07-27 19:16 | DI.VRAD_ITS ---
PROCEDURE INFORMATION: Exam: CT Abdomen And Pelvis Without Contrast Exam date and time: 07/27/2023 6:52 PM Age: 33 years old Clinical indication: Vomiting; Abdominal pain; Patient HX: Epigastric pain, coffee ground emesis TECHNIQUE: Imaging protocol: Computed tomography of the abdomen and pelvis without contrast. Radiation optimization: All CT scans at this facility use at least one of these dose optimization techniques: automated exposure control; mA and/or kV adjustment per patient size (includes targeted exams where dose is matched to clinical indication); or iterative reconstruction. COMPARISON: CT ABDOMEN PELVIS W 01/02/2019 7:29 PM FINDINGS: Liver: Mild hepatomegaly. Gallbladder and bile ducts: Normal Pancreas: Normal. Spleen: Normal. Adrenal glands: Normal. No mass. Kidneys and ureters: Normal. Stomach and bowel: Normal. Appendix: Appendix normal. Intraperitoneal space: Unremarkable. No free air. No significant fluid collection. Vasculature: Phleboliths within the pelvis. Lymph nodes: Unremarkable. No enlarged lymph nodes. Urinary bladder: Unremarkable as visualized. Reproductive: Unremarkable as visualized. Bones/joints: No acute abnormality. Soft tissues: Normal. IMPRESSION: No acute abdominal or pelvic abnormality. Dictated and Authenticated by: Derrek Murillo MD. Ordering:JILLIAN Lamb MD
[2023-07-27 19:31] VITALS: BP 154/87; PULSE 57; RESP 18; TEMP 37.1; O2SAT 98
== END 2023-07-27 20:23 | disposition home or self-care (01) ==
PROVIDERS: Emergency Provider Physician Assistant; PCP Physician Assistant Medical
DX: R11.2 Nausea with vomiting, unspecified; R10.13 Epigastric pain; Z98.890 Other specified postprocedural states; Z87.19 Personal history of other diseases of the digestive system; Z88.0 Allergy status to penicillin; Z72.0 Tobacco use
CPT/HCPCS: 36415; 80053; 83690; 96374; 96375; 99285; 74176; 85025; 99284; J2405

== ENCOUNTER 2024-10-21 10:15 | Emergency (ER) | payer OTHER, SELFPAY ==
[2024-10-21 10:22] VITALS: BP 154/91; PULSE 92; RESP 15; TEMP 36.9; O2SAT 99
--- NOTE | 2024-10-21 10:30 | DI.RAD_ITS ---
Exam(s) XR KNEE RT 3V AP,LAT,ROLLY EXAM: XR KNEE RT 3V AP,LAT,ROLLY CLINICAL HISTORY: Pain. TECHNIQUE: 2D digital imaging was performed of the right knee. Three views obtained. AP, lateral an d PA tunnel views were obtained. COMPARISON: No exams were available for comparison FINDINGS: BONES: No acute fracture is present. No bony destructive lesion is seen. JOINTS: The knee is normally aligned. No joint effusion is seen. SOFT TISSUE: Normal. IMPRESSION: Unremarkable radiographs of the right knee. DATA REPOSITORY: RADIATION DOSE DELIVERED:
--- NOTE | 2024-10-21 11:14 | DI.VRAD_ITS ---
PROCEDURE INFORMATION: Exam: XR Right Knee Exam date and time: 10/21/2024 10:53 AM Age: 34 years old Clinical indication: Other: Pain TECHNIQUE: Imaging protocol: Radiologic exam of the right knee. Views: 3 views. COMPARISON: No relevant prior studies available. FINDINGS: Bones/joints: Normal. Soft tissues: Normal. IMPRESSION: No acute findings. Dictated and Authenticated by: Derrek Murillo MD. Orderin James Milan MD
--- NOTE | 2024-10-21 11:17 | ED.GENADUL_ITS ---
Discharge Plan Disposition Patient Disposition: Home Condition: Stable Discharge Details Clinical Impression: Right knee sprain Primary Care Provider: Daniel Thomas ED Provider: Kayli Ramirez Discharge Instructions Instructions: Knee Sprain ED Additional Instructions: Rest, ice up to 3 times a day for 20 minutes. Compression and elevation when sitting or lying down. Please take Tylenol or Ibuprofen with food every 4-6 hours as needed for pain and swelling. Use the hinged knee brace as needed for comfort. Follow-up with orthopedics if no improvement in 2 to 3 weeks. Follow up with primary care provider in 3-5 days. Return to ED sooner if any worsening or concerns. Referrals: Tank Hopper PA [[facility]] - 2 weeks Discharge Data Discharge Date/Time-TO BE ENTERED AT DEPARTURE: 10/21/24 11:57 HPI General Mode of arrival: ambulatory . Date/Time Provider Initiated Documentation: 10/21/24 10:40 . Limitations to Documentation: no limitations . Information obtained by: patient, RN notes reviewed and old records reviewed . HPI Narrative: 34-year-old male presents to the ER with a chief complaint of right knee pain after getting up from a sitting position on Wednesday. He reports he has had pain since then. He is able to ambulate, no obvious deformity or significant swelling noted. No history of surgeries or significant trauma per patient report. He is complaining of some posterior popliteal pain. No calf swelling or redness. Related Data Allergies Allergy/AdvReac Type Severity Reaction Status Date / Time amoxicillin AdvReac Intermediate Skin Rash Unverified 10/21/24 10:25 General Stated Complaint: Orthopedic YAN: 4 Review of Systems All systems reviewed & are unremarkable except as noted in HPI and below Musculoskeletal Musculoskeletal: Reports as per HPI and Reports arthralgias Exam Extrem General: normal to inspection Right lower extremity: knee Details: normal to inspection and tenderness Location: of the popliteal fossa and of the medial joint line Course Vital Signs Vital signs: Vital Signs Temperature 36.9 C 10/21/24 10:22 Pulse 92 H 10/21/24 10:22 Respiratory Rate 15 10/21/24 10:22 Blood Pressure 154/91 H 10/21/24 10:22 Pulse Oximetry 99 10/21/24 10:22 Temperature 36.9 C 10/21/24 10:22 Temperature Source Oral 10/21/24 10:22 Pulse 92 H 10/21/24 10:22 Respiratory Rate 15 10/21/24 10:22 Blood Pressure 154/91 H 10/21/24 10:22 Blood Pressure Position Sitting 10/21/24 10:22 Pulse Oximetry 99 10/21/24 10:22 Oxygen Delivery Method Room Air 10/21/24 10:22 Oxygen Flow Rate 0 10/21/24 10:22 Medical Decision Making 34-year-old male presents to the ER with a chief complaint of right knee pain after getting up from a sitting position on Wednesday. He reports he has had pain since then. He is able to ambulate, no obvious deformity or significant swelling noted. No history of surgeries or significant trauma per patient report. He is complaining of some posterior popliteal pain. No calf swelling or redness. X-ray shows no acute findings. Negative anterior posterior drawer test. Tenderness is not elicited with palpation. Will give a hinged knee brace instructed on RICE procedures and follow-up care if no better in 2 to 3 weeks. He discussed taking Tylenol ibuprofen he verbalized understanding and is in agreement with the plan. This text was generated using [employer] system, please disregard any oddities of phrase or misspellings. Imaging Data Radiologic Study: Imaging: X-Ray Radiologist's impression: Exam date and time: 10/21/2024 10:53 AM Age: 34 years old Clinical indication: Other: Pain TECHNIQUE: Imaging protocol: Radiologic exam of the right knee. Views: 3 views. COMPARISON: No relevant prior studies available. FINDINGS: Bones/joints: Normal. Soft tissues: Normal. IMPRESSION: No acute findings. Thank you for allowing us to participate in the care of your patient. Dictated and Authenticated by: Derrek Murillo MD Quality:[facility] Health Related Social Needs: No Data to Display PFSH All Active Problems (Updated 10/21/24 @ 11:43 by Kayli Ramirez NP) Right knee sprain (Acute) Medical History (Updated 10/21/24 @ 11:43 by Kayli Ramirez NP) No significant past medical history Surgical History Status post repair of hydrocele History of hernia repair Social History Smoking/Tobacco Use Status: Current every day Tobacco Type: cigarettes Smoking risk assessment performed?: Yes Alcohol Intake: current Alcohol Intake frequency: 3 or more drinks per day Alcohol type: beer Drug use: Daily Substance use type: marijuana Do you feel safe at home: Yes Do you feel safe in your relationship?: Yes PAWSS Have you Been Recently Intoxicated or Drunk Within the Last 30 days?: No Have you Ever Experienced Previous Episodes of Alcohol Withdrawal?: No Have you ever Experienced Withdrawal Seizures?: No Have you ever Experienced Delirium Tremens(DT)s?: No Have you ever undergone Alcohol Rehabilitation Treatment (i.e, inpt ot outpatient treatment programs)?: No Have you ever Experienced Blackouts?: No Have you ever Combined Alcohol with other Downers within the last 90 days?: No Have you ever Combined Alcohol with any other Substance of Abuse during the last 90 days?: No Positive Blood Alcohol level on Presentation? [PCS.BAL]: No Evidence of Increased Autonomic Activity (i.e. HR>120, tremor, sweating, agitation, nausea)?: No Result: 0
--- NOTE | 2024-11-08 16:45 | NUR.NOTE ---
Accessed Pt chart to print the provider's note for [facility] paperwork
== END 2024-10-21 11:57 | disposition home or self-care (01) ==
PROVIDERS: Emergency Provider Registered Nurse Emergency; PCP Physician Assistant Medical
DX: S83.91XA Sprain of unspecified site of right knee, initial encounter (principal); F17.210 Nicotine dependence, cigarettes, uncomplicated; X50.9XXA Other and unspecified overexertion or strenuous movements or postures, initial encounter; Y93.89 Activity, other specified; Y92.018 Other place in single-family (private) house as the place of occurrence of the external cause
CPT/HCPCS: 73562; 99283